=== PATIENT | male | born 1950 | race Caucasian/White ===

== ENCOUNTER 2021-06-04 00:46 | Emergency (ER) | payer MEDICARE ==
[2021-06-04 01:06] VITALS: BP 164/80
--- NOTE | 2021-06-04 07:08 | XRay Report ---
CHEST 2 VIEWS INDICATION / CLINICAL INFORMATION: weakness, chf. COMPARISON: None available. FINDINGS: SUPPORT DEVICES: None. HEART / MEDIASTINUM: Borderline to mild cardiomegaly. LUNGS / PLEURA: No significant pulmonary or pleural abnormality. No pneumothorax. BONES: No significant osseous abnormality. ADDITIONAL FINDINGS: No significant additional findings. IMPRESSION: 1. No active cardiopulmonary disease. Borderline to mild cardiomegaly. Signer Name: Cleveland Meek II, MD Signed: 06/04/2021 7:04 AM Workstation Name: [id number]
[2021-06-04 07:31] LABS: Hematocrit 30.6 % (35.5-45.6); Mean Corpuscular HGB Conc 33 % (32-34); Mean Corpuscular Volume 85 fl (84-94)
[2021-06-04 07:45] LABS: Red Cell Distribution Width 20.7 % (13.2-15.2)
[2021-06-04 07:46] LABS: Platelet Count 85 K/mm3 (140-440)
[2021-06-04 07:49] LABS: Alanine Aminotransferase 48 units/L (7-56); Albumin 2.4 g/dL (3.9-5); BUN/Creatinine Ratio 21; Blood Urea Nitrogen 17 mg/dL (9-20); Calcium 8.1 mg/dL (8.4-10.2); Hemolysis Index 0
[2021-06-04 08:00] LABS: Bacteria,Urine 1+ /HPF (Negative); Bilirubin,Urine NEG (Negative); Blood,Urine MOD (Negative); Color,Urine Amber (Yellow); Mucus,Urine FEW /HPF; Protein,Urine <15 mg/dL mg/dL (Negative)
--- NOTE | 2021-06-04 08:39 | Emergency Department Report ---
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 He presents to the ER today with a complaint of shortness of breath which is painless for about 1 month. He denies headache, neck pain, chest pain, abdominal pain, nausea, vomiting, diarrhea, hematemesis and bright red blood per rectum. He denies urinary symptoms. On review of systems, he does endorse lower extremity swelli ng for about 1 month. He does not describe exacerbating or relieving factors. His primary care doctor obtained a CT scan of the abdomen pelvis with IV contrast on April 25, 2021. The CT scan demonstrated evidence of hepatic cirrhosis, with portal hypertension and borderline splenomegaly, gastroesophageal varices, and moderate cardiomegaly. No ascites is noted. -: month(s) Location: left, right, lower extremity Quality: aching Improves with: none Worsens with: none - Related Data Previous Rx's Medication Instructions Recorded Last Taken Type Furosemide [Lasix TAB] 40 mg PO QAM #30 tablet 06/04/21 Unknown Rx Spironolactone [Aldactone] 50 mg PO QAM #30 tab 06/04/21 Unknown Rx Allergies Allergy/AdvReac Type Severity Reaction Status Date / Time No Known Allergies Allergy Unverified 06/04/21 01:08 ED Review of Systems ROS: Stated complaint: WEAKNESS/FATIGUE Other details as noted in HPI Comment: All other systems reviewed and negative Constitutional: weakness. denies: fever Eyes: denies: eye discharge ENT: denies: epistaxis Respiratory: shortness of breath Cardiovascular: edema. denies: chest pain Gastrointestinal: denies: abdominal pain, hematemesis, melena, hematochezia Genitourinary: denies: dysuria Musculoskeletal: denies: back pain Neurological: weakness Hematological/Lymphatic: denies: easy bleeding ED Past Medical Hx - Medications Home Medications: Home Medications Medication Instructions Recorded Confirmed Last Taken Type Furosemide [Lasix TAB] 40 mg PO QAM #30 tablet 06/04/21 Unknown Rx Spironolactone [Aldactone] 50 mg PO QAM #30 tab 06/04/21 Unknown Rx ED Physical Exam - General Limitations: Language Barrier General appearance: alert, in no apparent distress - Head Head exam: Present: atraumatic, normocephalic - Eye Eye exam: Present: normal appearance, EOMI. Absent: nystagmus - ENT ENT exam: Present: normal exam, normal orophraynx, mucous membranes moist, normal external ear exam - Neck Neck exam: Present: normal inspection, full ROM. Absent: tenderness, meningismus - Respiratory Respiratory exam: Present: normal lung sounds bilaterally. Absent: respiratory distress, wheezes, rales, rhonchi, stridor, decreased breath sounds - Cardiovascular Cardiovascular Exam: Present: regular rate, normal rhythm, normal heart sounds. Absent: bradycardia, tachycardia, irregular rhythm, systolic murmur, diastolic murmur, rubs, gallop - GI/Abdominal GI/Abdominal exam: Present: soft. Absent: distended, tenderness, guarding, rebound, rigid, pulsatile mass - Rectal Rectal exam: Present: deferred - Extremities Exam Extremities exam: Present: normal inspection, full ROM, pedal edema (2-3+ edema in the bilateral lower extremities.), other (2+ pulses noted in the bilateral upper and lower extremities. There is no palpable cord. negative Homans sign. Muscular compartments are soft. The pelvis is stable.). Absent: calf tenderness - Back Exam Back exam: Present: normal inspection. Absent: tenderness, CVA tenderness (R), CVA tenderness (L), paraspinal tenderness, vertebral tenderness - Neurological Exam Neurological exam: Present: alert, normal gait, other (No facial droop. Tongue midline. Extraocular movements intact bilaterally. Facial sensation intact to light touch in V1, V2, V3 distribution bilaterally. 5 and a 5 strength in 4 extremities. Sensation intact to light touch in 4 extremities.). Absent: motor sensory deficit - Psychiatric Psychiatric exam: Present: flat affect - Skin Skin exam: Present: warm, dry, intact, normal color. Absent: rash ED Course Vital Signs 06/04/21 00:52 Temperature 98.6 F Pulse Rate 114 H Respiratory 18 Rate Blood Pressure 164/80 O2 Sat by Pulse 98 Oximetry - Pulse Oximetry Interpretation Digit-Finger Initial Pulse Oximetry Readin O2 Sat by Pulse Oximetry: 99 Actions Taken: none ED Medical Decision Making - Lab Data Result diagrams: 06/04/21 06:59 06/04/21 06:59 Vital Signs 06/04/21 00:52 Temperature 98.6 F Pulse Rate 114 H Respiratory 18 Rate Blood Pressure 164/80 O2 Sat by Pulse 98 Oximetry Lab Results 06/04/21 06/04/21 06/04/21 Range/Units 01:08 06:59 06:59 WBC 3.7 L (4.5-11.0) K/mm3 RBC 3.60 L (3.65-5.03) M/mm3 Hgb 10.0 L (11.8-15.2) gm/dl Hct 30.6 L (35.5-45.6) % MCV 85 (84-94) fl MCH 28 (28-32) pg MCHC 33 (32-34) % RDW 20.7 H (13.2-15.2) % Plt Count 85 L (140-440) K/mm3 [place] % (Auto) Slitter Operator Sodium 133 L (137-145) mmol/L Potassium 4.3 (3.6-5.0) mmol/L Chloride 103.6 (98-107) mmol/L Carbon Dioxide 17 L (22-30) mmol/L Anion Gap 17 mmol/L BUN 17 (9-20) mg/dL Creatinine 0.8 (0.8-1.3) mg/dL Estimated GFR > 60 ml/min BUN/Creatinine Ratio 21 % Glucose 126 H (75-100) mg/dL Calcium 8.1 L (8.4-10.2) mg/dL Magnesium 2.00 (1.7-2.3) mg/dL Total Bilirubin 2.30 H (0.1-1.2) mg/dL AST 89 H (5-40) units/L ALT 48 (7-56) units/L Alkaline Phosphatase 166 H (35-129) units/L Total Creatine Kinase 57 (55-170) units/L Total Protein 7.3 (6.3-8.2) g/dL Albumin 2.4 L (3.9-5) g/dL Albumin/Globulin Ratio 0.5 % TSH (0.270-4.200) mlU/mL Urine Color Peggy (Yellow) Urine Turbidity Clear (Clear) Urine pH 6.0 (5.0-7.0) Ur Specific Lorenzo 1.016 (1.003-1.030) Urine Protein <15 mg/dl (Negative) mg/dL Urine Glucose (UA) Neg (Negative) mg/dL Urine Ketones Tr (Negative) mg/dL Urine Blood Mod (Negative) Urine Nitrite Neg (Negative) Urine Bilirubin Neg (Negative) Urine Urobilinogen 4.0 (<2.0) mg/dL Ur Leukocyte Esterase Neg (Negative) Urine WBC (Auto) 4.0 (0.0-6.0) /HPF Urine RBC (Auto) 38.0 (0.0-6.0) /HPF U Epithel Cells (Auto) 5.0 (0-13.0) /HPF Urine Bacteria (Auto) 1+ (Negative) /HPF Urine Mucus Few /HPF 06/04/21 Range/Units 06:59 WBC (4.5-11.0) K/mm3 RBC (3.65-5.03) M/mm3 Hgb (11.8-15.2) gm/dl Hct (35.5-45.6) % MCV (84-94) fl MCH (28-32) pg MCHC (32-34) % RDW (13.2-15.2) % Plt Count (140-440) K/mm3 [place] % (Auto) Sodium (137-145) mmol/L Potassium (3.6-5.0) mmol/L Chloride (98-107) mmol/L Carbon Dioxide (22-30) mmol/L Anion Gap mmol/L BUN (9-20) mg/dL Creatinine (0.8-1.3) mg/dL Estimated GFR ml/min BUN/Creatinine Ratio % Glucose (75-100) mg/dL Calcium (8.4-10.2) mg/dL Magnesium (1.7-2.3) mg/dL Total Bilirubin (0.1-1.2) mg/dL AST (5-40) units/L ALT (7-56) units/L Alkaline Phosphatase (35-129) units/L Total Creatine Kinase (55-170) units/L Total Protein (6.3-8.2) g/dL Albumin (3.9-5) g/dL Albumin/Globulin Ratio % TSH 0.642 (0.270-4.200) mlU/mL Urine Color (Yellow) Urine Turbidity (Clear) Urine pH (5.0-7.0) Ur Specific Lorenzo (1.003-1.030) Urine Protein (Negative) mg/dL Urine Glucose (UA) (Negative) mg/dL Urine Ketones (Negative) mg/dL Urine Blood (Negative) Urine Nitrite (Negative) Urine Bilirubin (Negative) Urine Urobilinogen (<2.0) mg/dL Ur Leukocyte Esterase (Negative) Urine WBC (Auto) (0.0-6.0) /HPF Urine RBC (Auto) (0.0-6.0) /HPF U Epithel Cells (Auto) (0-13.0) /HPF Urine Bacteria (Auto) (Negative) /HPF Urine Mucus /HPF - EKG Data -: EKG Interpreted by Ks EKG shows normal: sinus rhythm Rate: normal - EKG Data When compared to previous EKG there are: previous EKG unavailable 06/04/21 08:34 The EKG is interpreted at 08: 1 7 sinus rhythm, tachycardia, rate 101 borderline left axis deviation. Ventricular hypertrophy. QTC 503 ms. Motion artifact.. No STEMI. No prior for comparison - Radiology Data Radiology results: pending, report reviewed, image reviewed CHEST 2 VIEWS INDICATION / CLINICAL INFORMATION: weakness, chf. COMPARISON: None available. FINDINGS: SUPPORT DEVICES: None. HEART / MEDIASTINUM: Borderline to mild cardiomegaly. LUNGS / PLEURA: No significant pulmonary or pleural abnormality. No pneumothorax. BONES: No significant osseous abnormality. ADDITIONAL FINDINGS: No significant additional findings. IMPRESSION: 1. No active cardiopulmonary disease. Borderline to mild cardiomegaly. Signer Name: Cleveland Meek II, MD Signed: 06/04/2021 6:04 AM Workstation Name: [id number] - Medical Decision Making Differential diagnosis, including but not limited to: Dependent edema, cirrhosis , CHF, hepatic insufficiency, renal insufficiency Assessment and plan: 70-year-old gentleman, who is afebrile, with reassuring vital signs, resolved tachycardia, presenting with probable symptomatic cirrhosis. He had a CT scan of his abdomen pelvis which was performed last month. He is not hypoxic at this time. Lung sounds are clear. He is not establish outpatient care with a copywriting intern. Laboratory studies are suggestive of cirrhosis. Contacted GI on-call, Dr. Acosta. Discussed the patient's history, physical, imaging studies laboratory studies and clinical impression. He recommends a low sodium diet, 2 g daily, continue Lasix 40 mg every morning, start Aldactone, 40 mg every morning, follow-up with outpatient GI within 2 weeks to establish outpatient care, follow-up with primary care doctor in 1 week for repeat labs. Patient not acutely encephalopathic or altered. He makes no complaint of constipation. Patient does not appear to be emergently decompensated at this time, and he is suitable to follow-up with his outpatient primary care doctor and copywriting intern Critical care attestation.: If time is entered above; I have spent that time in minutes in the direct care of this critically ill patient, excluding procedure time. ED Disposition Clinical Impression: Cirrhosis, Dyspnea, Swelling of lower extremity Disposition: HOME / SELF CARE / HOMELESS Is pt being admited?: No Does the pt Need Aspirin: No Condition: Good Instructions: Cirrhosis Additional Instructions: Patient had a CT scan of the abdomen pelvis April 2021, which demonstrated cirrhosis. This is likely why the patient is feeling short of breath and experiencing lower extremity swelling. Recommend that patient consume a low- salt diet, 2 g daily. Patient may continue Lasix, 40 mg, in the morning daily. Patient will receive an additional prescription for this Lasix. In addition, patient is recommended to start Aldactone, 50 mg each morning. Recommend follow-up with your primary care doctor in 1 week for repeat labs and checkup/evaluation. Recommend follow-up with a copywriting intern, such as [facility], within the next 2 weeks for establishment of outpatient care for cirrhosis. We recommend that the patient abstain from alcohol consumption, Motrin consumption, and Tylenol consumption. Please return to the emergency room right away with new pain, worsened pain, migration of pain, projectile vomiting, change in mental status, confusion, inability tolerate liquid feeds, new, worsened or different symptoms not present on the initial emergency room evaluation Referrals: [facility] [Provider Group] - 7-10 days ANNAMARIA FORMAN MD [Primary Care Provider] - 7-10 days
[2021-06-04 10:37] LABS: Basophils % (Manual) 0 % (0.0-1.8); Total Cells Counted 100
[2021-06-04 10:39] LABS: Platelet Estimate Consistent w Auto
--- NOTE | 2021-06-06 13:22 | Electrocardiograph Report ---
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
== END 2021-06-04 15:08 | disposition home or self-care (01) ==
LOC: ED 00:46
DX: K74.60 Unspecified cirrhosis of liver (principal); R06.00 Dyspnea, unspecified; M79.89 Other specified soft tissue disorders
CPT/HCPCS: 36415; 71046; 80053; 81001; 82550; 83735; 84443; 85007; 85025; 93005; 99283; 99284